=== PATIENT | female | born 1985 | race Caucasian/White ===

== ENCOUNTER 2018-07-25 19:39 | Emergency (ER) | payer OTHER ==
[2018-07-25 19:48] VITALS: BP 131/91
--- NOTE | 2018-07-25 21:17 | ED Physician Documentation ---
PD HPI SKIN - Stated complaint Stated Complaint: RASH ON CHEST - Chief complaint Chief Complaint: Wound - History obtained from History obtained from: Patient - History of Present Illness Timing - onset: How many weeks ago (2-3) Timing - duration: Weeks (had onset of itchy, local, red area left upper breast that got slowly bigger. Seen in clinic and Rx OTC clotrimazole. No improvement and so she is Rx Itraconazole PO BID for the past 5 days. No improvement and is having more areas develop the past few days on right breat and upper abd. No generalized rash. Does not have pets. No unusual chemical contact there. No travel. No URI symptoms.) Timing - details: Gradual onset Location: Chest, Abdomen Quality / character: Itchy, Discolored Associated symptoms: No: Fever, Myalgias Contributing factors: No: Exposed to medication, Exposed to Poison vern/oak, Insect bite /sting, Recent illness Similar symptoms before: Has not had sx before Recently seen: Clinic Review of Systems Constitutional: denies: Fever, Chills, Myalgias Nose: denies: Rhinorrhea / runny nose, Congestion Throat: denies: Sore throat Respiratory: denies: Cough GI: denies: Vomiting, Diarrhea Skin: reports: Rash. 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 07/25/18 [Nystatin-Triamcinolone Cream] - Allergies Allergies/Adverse Reactions: Allergies Allergy/AdvReac Type Severity Reaction Status Date / Time No Known Drug Allergies Allergy Verified 07/25/18 19:53 - Social History Does the pt smoke?: No Smoking Status: Never smoker Does the pt drink ETOH?: Yes Does the pt have substance abuse?: No - Immunizations Immunizations are current?: Yes - POLST Patient has POLST: No PD ED PE NORMAL - Vitals Vital signs reviewed: Yes - General General: Alert and oriented X 3, No acute distress, Well developed/nourished - HEENT HEENT: Pharynx benign - Neck Neck: Supple, no meningeal sign, No adenopathy - Cardiac Cardiac: RRR, No murmur - Respiratory Respiratory: Clear bilaterally - Abdomen Abdomen: Soft, Non tender - Derm Derm: Normal color, Warm and dry, Other (discrete rounded patches of red skin with central clearing, raised edges slightly, but no obvious scaling. Main one left upper breast. Some other smaller ones right breast and upper abd. No diffuse rash. ) Results - Vitals Vitals: Oxygen O2 Source Room air PD MEDICAL DECISION MAKING - ED course Complexity details: considered differential (seems like tinea by appearance with some satellite areas on chest. Does not appear allergic reaction, given the confiined area involved. ), d/w patient Departure - Departure Disposition: 01 Home, Self Care Clinical Impression: Rash and nonspecific skin eruption, Tinea corporis Condition: Stable Record reviewed to determine appropriate education?: Yes Instructions: Ringworm Ch Follow-Up: Ronnie Garvey MD [Primary Care Provider] - Prescriptions: Cetirizine [ZyrTEC] 10 mg PO DAILY #15 tablet Fluconazole [Diflucan] 150 mg PO DAILY #3 tablet Nystatin/Triamcin [Nystatin-Triamcinolone Cream] 1 applic TP TID #30 cream..g. Comments: Steroid topically 3 times a day to the skin rash. He can use oral Diflucan as well. Cetirizine antihistamine daily for itch. Recheck if not improving over the next several days and should be mostly gone by a week. Discharge Date/Time: 07/25/18 22:56
[2018-07-25] MEDS ORDERED: FLUCONAZOLE 100 MG TABLET PO STA (22:40)
[2018-07-25] MEDS ORDERED: CETIRIZINE 10 MG TABLET PO STA (22:40)
== END 2018-07-25 22:56 | disposition home or self-care (01) ==
LOC: ED 19:39
DX: B35.4 Tinea corporis (principal)
CPT/HCPCS: 99283; A9270

== ENCOUNTER 2020-08-13 18:21 | Emergency (ER) | payer OTHER ==
[2020-08-13 18:29] VITALS: BP 132/87
--- NOTE | 2020-08-13 19:10 | ED Physician Documentation ---
PD HPI LOWER EXT INJURY - Stated complaint Stated Complaint: LT ANKLE INJ - Chief complaint Chief Complaint: Trauma Ext - History obtained from History obtained from: Patient - History of Present Illness PD HPI LOW EXT INJURY LOCATION: Left, Ankle Type of injury: Twist Where injury occurred: Home Timing - onset: How many hours ago (1) Timing - duration: Hours (1) Timing - details: Abrupt onset Pain level max: 5 Pain level now: 4 Improved by: Rest Worsened by: Moving, Palpating Associated symptoms: Swelling. 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 : None HEENT: None Psych: None Musculoskeletal: None Derm: None - Past Surgical History Past Surgical History: No - Present Medications Home Medications: Ambulatory Orders Medication Instructions Recorded Confirmed Cyclobenzaprine [Flexeril] 10 mg PO TID PRN 08/13/20 08/13/20 - Allergies Allergies/Adverse Reactions: Allergies Allergy/AdvReac Type Severity Reaction Status Date / Time No Known Drug Allergies Allergy Verified 08/13/20 18:24 - Social History Does the pt smoke?: No Smoking Status: Never smoker Does the pt drink ETOH?: Yes Does the pt have substance abuse?: No - Immunizations Immunizations are current?: Yes - POLST Patient has POLST: No PD ED PE NORMAL - Vitals Vital signs reviewed: Yes - General General: Alert and oriented X 3, No acute distress, Well developed/nourished - HEENT HEENT: Moist mucous membranes - Neck Neck: Supple, no meningeal sign - Derm Derm: Warm and dry - Extremities Extremities: Other (L ankle - TTP over the achilles, plantar flexion with squeezing of the calf. no bony tenderness) - Neuro Neuro: Alert and oriented X 3 Results - Vitals Vitals: Vital Signs - 24 hr 08/13/20 18:25 Temperature 36.7 C Heart Rate 86 Respiratory 16 Rate Blood Pressure 132/87 H O2 Saturation 100 Oxygen O2 Source Room air - Rads (name of study) Left ankle x-ray Radiology: Prelim report reviewed, EMP read contemporaneously, See rad report (No acute abnormality. Achilles appears intact) PD MEDICAL DECISION MAKING - ED course Complexity details: reviewed results, re-evaluated patient, considered differential, d/w patient ED course: 35-year-old female with a left ankle sprain. Given crutches and an Aircast for comfort. Achilles intact on physical exam and x-ray. Will place on Motrin for pain. We will have her follow-up with her doctor for further care. May need repeat x-rays if not improved within 1 week. Patient counseled regarding signs and symptoms for which I believe and urgent re-evaluation would be necessary. Patient with good understanding of and agreement to plan and is comfortable going home at this time This document was made in part using voice recognition software. While efforts are made to proofread this document, sound alike and grammatical errors may occur. Departure - Departure Disposition: 01 Home, Self Care Clinical Impression: Left ankle sprain Qualifiers: Encounter type: initial encounter Involved ligament of ankle: unspecified ligament Qualified Code(s): S93.402A - Sprain of unspecified ligament of left ankle, initial encounter Condition: Good Instructions: ED Sprain Ankle Follow-Up: your,doctor in 1 week [Other] Comments: Return if you worsen. Your xray does not show any acute abnormalities today. You may bear weight as tolerated. If you are still having pain in 1 week, your doctor should consider repeat xray. Discharge Date/Time: 08/13/20 19:58
--- NOTE | 2020-08-13 19:37 | XRAY Report ---
PROCEDURE: Ankle 3 View LT INDICATIONS: injury TECHNIQUE: 3 views of the ankle were acquired. COMPARISON: None. FINDINGS: Bones: No fractures or dislocations. Ankle mortise is normally aligned. No suspicious bony lesions . Soft tissues: No tibiotalar joint effusion. Achilles tendon appears normal. IMPRESSION: No definite fracture however follow-up radiographs in 10 days could be performed if the patient's symptoms do not improve to exclude occult fracture/assess for healing sclerosis. Reviewed by: Corey Holland MD on 08/13/2020 7:35 PM PST Approved by: Corey Holland MD on 08/13/2020 7:35 PM PST Station ID: [id number]
[2020-08-13] MEDS ORDERED: IBUPROFEN 800 MG TABLET PO STA (19:49)
== END 2020-08-13 19:58 | disposition home or self-care (01) ==
LOC: ED 18:21
DX: S93.402A Sprain of unspecified ligament of left ankle, initial encounter (principal); W22.8XXA Striking against or struck by other objects, initial encounter; X50.1XXA Overexertion from prolonged static or awkward postures, initial encounter; Y92.009 Unspecified place in unspecified non-institutional (private) residence as the place of occurrence of the external cause
CPT/HCPCS: 73610; 99282; 99283; A9270

== ENCOUNTER 2023-08-16 04:53 | Emergency (ER) | payer OTHER ==
--- NOTE | 2023-08-16 05:01 | ED Physician Documentation ---
PD HPI NECK PAIN - Stated complaint Stated Complaint: NECK PX - History obtained from History obtained from: Patient - Additional information Additional information: HPI from patient Patient c/o neck pain, L>R. The pain is posterolateral and extends down both trapezial ridges. Pain began approximately 10 PM, gradually and without inciting event. Denies injury. Pain is distinctly worse with movement, particularly rotation in either direction. Denies numbness, weakness, CALDERON. No improvement with methacarbamol, heating pad. She has had similar, but much milder, neck pain in the past which responded to trigger-point injections Review of Systems Constitutional: denies: Fever Skin: denies: Rash Musculoskeletal: reports: Neck pain. 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 HEENT: None Psych: None Musculoskeletal: None Derm: None - Past Surgical History Past Surgical History: No - Present Medications Home Medications: Ambulatory Orders Medication Instructions Recorded Confirmed Cyclobenzaprine [Flexeril] 10 mg PO TID PRN 08/13/20 08/13/20 Escitalopram [Lexapro] 10 mg PO DAILY 08/16/23 08/16/23 HYDROcod/ACETAM 5/325 [[place] 5/325] 1 tablet PO Q6H PRN #14 tablet 08/16/23 diazePAM [Valium] 5 mg PO TID PRN #15 tablet 08/16/23 methocarbamoL [Methocarbamol] 500 mg PO PRN PRN 08/16/23 08/16/23 - Allergies Allergies/Adverse Reactions: Allergies Allergy/AdvReac Type Severity Reaction Status Date / Time No Known Drug Allergies Allergy Verified 08/16/23 05:13 - Social History Does the pt smoke?: No Smoking Status: Never smoker Does the pt drink ETOH?: Yes Does the pt have substance abuse?: No - Immunizations Immunizations are current?: Yes - POLST Patient has POLST: No PD ED PE NORMAL - Vitals Vital signs reviewed: Yes - General General: Alert and oriented X 3, No acute distress, Well developed/nourished - Neck Neck: No bony TTP, Other (maintains head in neutral position; rotation in either direction exacerbates pain and reproduces chief complaint) - Respiratory Respiratory: No respiratory distress, Clear bilaterally - Derm Derm: No rash - Neuro Neuro: No motor deficit (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 No "red flags" (such as fever, weakness, numbness, injury) to warrant emergent testing. No rash to suggest zoster. Given valium and hydrocodone/acetaminophen with rx for both of these medications (diazepam given for its muscle-relaxant property). Return precautions reviewed. Departure - Departure Disposition: Home, Self Care Clinical Impression: Neck pain Condition: Good Instructions: ED Spasm Neck No Injury Follow-Up: [facility] [Provider Group] Prescriptions: HYDROcod/ACETAM 5/325 [[place] 5/325] 1 tablet PO Q6H PRN #14 tablet PRN Reason: Pain diazePAM [Valium] 5 mg PO TID PRN #15 tablet PRN Reason: Spasms Comments: I have electronically submitted prescriptions for Vicodin (narcotic/opiate pain medication) and diazepam (Valium, which is being used for its muscle relaxant property) to the pharmacy in [place]. These can cause sedation; do not take any other sedating medications (such as benadryl, sleep medications, alcohol) while taking either of these medications. You should also avoid the methacarbomol while taking either of these medications. You SHOULD also take ibuprofen 400-600mg by mouth every six hours as needed for pain. I am prescribing a short course of narcotic pain medication for you. These are potentially dangerous and addictive medications that should be used carefully. These medications may constipate you. Take an [id number] stool softener (docusate) twice daily with plenty of water while taking these medications. If you go 24 hours without a bowel movement, take [id number] miralax, per package instructions. Do not drink or drive while taking these medications. If you received narcotic or sedating medications while in the emergency department, do not drive for 24 hours. Store this medication in a safe, secure place and out of reach of children. It is a violation of federal law to give or sell this medication to another person or to use in a manner other than prescribed. The ED will not refill narcotic prescriptions, including prescriptions lost or stolen. To dispose of unwanted medications: 1. [facility] at [address] in [place] has a medication drop box. They accept prescription medications (in pill form) Wednesday through Wednesday 9:00 a.m. to 5:00 p.m. 2. The [facility] accepts prescription medications (in pill form only) for disposal year round. Call for more information. 3. Contact the [facility] for the next [facility] sponsored prescription drug collection event. , [phone], or [phone]; Forms: Activity restrictions Discharge Date/Time: 08/16/23 06:38
[2023-08-16] MEDS ORDERED: diazePAM 5 MG TABLET PO STA (06:05)
[2023-08-16] MEDS ORDERED: HYDROcod/ACETAM 5/325 MG TABLET PO STA (06:06)
[2023-08-16] MEDS ORDERED: IBUPROFEN 600 MG TABLET PO STA (06:06)
[2023-08-16 06:42] VITALS: BP 133/90; O2SAT 97
== END 2023-08-16 06:38 | disposition home or self-care (01) ==
LOC: ED 04:53
DX: M54.2 Cervicalgia (principal); Z79.899 Other long term (current) drug therapy
CPT/HCPCS: 99282; 99283; A9270